=== PATIENT | female | born 1935 | race Caucasian/White ===

== ENCOUNTER → 2017-03-04 | Outpatient (CLI) | payer OTHER | LOC: ULTRA 12:26 | DX: R92.8 Other abnormal and inconclusive findings on diagnostic imaging of breast (principal); R93.8 Abnormal findings on diagnostic imaging of other specified body structures ==

== ENCOUNTER → 2017-10-01 | Outpatient (CLI) | payer OTHER | LOC: MRI 06:19 | DX: M47.893 Other spondylosis, cervicothoracic region (principal); M47.26 Other spondylosis with radiculopathy, lumbar region ==

== ENCOUNTER → 2019-05-19 | Outpatient (CLI) | payer OTHER | LOC: ULTRA 05-17 10:20 | DX: N60.01 Solitary cyst of right breast (principal) ==

== ENCOUNTER 2020-05-25 23:39 | Emergency (ER) | payer OTHER ==
[~2020-05-25] VITALS: Ht 152.4 cm; Wt 52.2 kg
[2020-05-25] MEDS ORDERED: SYNTHROID100 MC1 PO (23:54)
[2020-05-25] MEDS ORDERED: GLUMETZA500 PO (23:55)
[2020-05-26] MEDS ORDERED: ERYTHROMYCIN E3.5 G2 TOP (02:04)
[2020-05-26 02:09] VITALS: BP 165/56
== END 2020-05-26 02:10 | disposition home or self-care (01) ==
LOC: ER 23:39
DX: S01.111A Laceration without foreign body of right eyelid and periocular area, initial encounter (principal); Z79.899 Other long term (current) drug therapy; Z91.013 Allergy to seafood; Z88.1 Allergy status to other antibiotic agents; W01.198A Fall on same level from slipping, tripping and stumbling with subsequent striking against other object, initial encounter; Y93.89 Activity, other specified; Y92.89 Other specified places as the place of occurrence of the external cause; Y99.8 Other external cause status

== ENCOUNTER → 2020-06-07 | Outpatient (CLI) | payer OTHER ==
[~2020-06-07] MED LIST: ERYTHROMYCIN E3.5 G2 TOP; GLUMETZA500 PO; SYNTHROID100 MC1 PO
== END ==
LOC: ULTRA 10:04
PROVIDERS: ATTEND Obstetrics & Gynecology
DX: N85.8 Other specified noninflammatory disorders of uterus (principal); R87.619 Unspecified abnormal cytological findings in specimens from cervix uteri